=== PATIENT | female | born 2000 | race Caucasian/White ===

== ENCOUNTER 2018-03-05 18:25 | Emergency (ER) | payer OTHER ==
[~2018-03-05] VITALS: Ht 177.8 cm; Wt 127.3 kg
[2018-03-05 18:31] VITALS: BP 144/74; TEMP 98
[2018-03-05 19:10] LABS: COLLECTION METHOD CLEAN CATCH
[2018-03-05 19:16] LABS: MUCOUS Present /lpf; PH 6 (5-8); SQUAMOUS EPITHELIAL 0-2 /hpf; URINE APPEARANCE Clear; URINE BACTERIA Rare /hpf; URINE BILIRUBIN Negative (NEGATIVE); URINE BLOOD Negative (NEGATIVE); URINE COLOR Yellow; URINE GLUCOSE Negative (NEGATIVE); URINE KETONE Negative (NEGATIVE); URINE LEUKOCYTE ESTERASE Negative (NEGATIVE); URINE NITRATE Negative (NEGATIVE); URINE PROTEIN(semi-quant) 2+ (NEGATIVE); URINE UROBILINOGEN >=4.0 mg/dL (NEGATIVE)
[2018-03-05] MEDS ORDERED: BIRTH CONTROL (19:19)
[2018-03-05] MEDS ORDERED: MED FOR DEPRESSION (19:19)
[2018-03-05] MEDS ORDERED: PRILOTC (19:19)
[2018-03-05] MEDS ORDERED: NORCO 325 MG-51 TAB PO (20:42)
[2018-03-05 20:55] VITALS: PULSE 86
== END 2018-03-05 20:56 | disposition home or self-care (01) ==
LOC: COL.ER 18:25
PROVIDERS: Nurse Practitioner
DX: S39.012A Strain of muscle, fascia and tendon of lower back, initial encounter (principal); K21.9 Gastro-esophageal reflux disease without esophagitis; F32.9 Major depressive disorder, single episode, unspecified; Z96.22 Myringotomy tube(s) status; Z90.89 Acquired absence of other organs; X50.0XXA Overexertion from strenuous movement or load, initial encounter
CPT/HCPCS: J2360